=== PATIENT | male | born 1960 | race Caucasian/White ===

== ENCOUNTER 2023-03-20 07:03 | Day surgery (SDC) | payer MEDICAID ==
[~2023-03-20] VITALS: Ht 167.6 cm; Wt 57.6 kg
[2023-03-20] MEDS ORDERED: fentaNYL CITRATE/PF 100 MCG/2 ML AMP ONE (08:43)
[2023-03-20] MEDS ORDERED: MIDAZOLAM HCL 5 MG/5 ML VIAL ONE (08:44)
[2023-03-20] MEDS ORDERED: SIMETHICONE 40 MG/0.6 ML ML ONE (08:47)
[2023-03-20 12:24] VITALS: BP_SYST 103
== END 2023-03-20 10:00 | disposition home or self-care (01) ==
LOC: SDS 07:03 → SMU 07:06 → SDS 10:00
PROVIDERS: ATTEND Internal Medicine
DX: R19.7 Diarrhea, unspecified (principal); D12.2 Benign neoplasm of ascending colon; K57.30 Diverticulosis of large intestine without perforation or abscess without bleeding; K64.8 Other hemorrhoids; R19.4 Change in bowel habit; Z86.010 Personal history of colon polyps; R10.9 Unspecified abdominal pain; I10 Essential (primary) hypertension; E78.5 Hyperlipidemia, unspecified; E11.9 Type 2 diabetes mellitus without complications; Z79.82 Long term (current) use of aspirin; Z79.4 Long term (current) use of insulin; Z79.899 Other long term (current) drug therapy
CPT/HCPCS: 45380; 45385; 82962; 88305; 99152; 99153; G0378; J2250; J3010